=== PATIENT | female | born 1940 | race Caucasian/White ===

== ENCOUNTER → 2016-12-08 | Outpatient (CLI) | payer OTHER | LOC: BHFA 10:15 | PROVIDERS: ATTEND Internal Medicine Cardiovascular Disease | DX: I70.1 Atherosclerosis of renal artery (principal); I10 Essential (primary) hypertension; R07.9 Chest pain, unspecified; E78.5 Hyperlipidemia, unspecified ==

== ENCOUNTER → 2016-12-14 | Outpatient (CLI) | payer OTHER | LOC: BHFA 13:30 | PROVIDERS: ATTEND Internal Medicine Interventional Cardiology | DX: R07.9 Chest pain, unspecified (principal) | CPT/HCPCS: 78452; 93017; A9500 ==

== ENCOUNTER → 2017-07-24 | Outpatient (CLI) | payer OTHER | LOC: FIMAGING 13:12 | PROVIDERS: ATTEND Internal Medicine | DX: Z12.31 Encounter for screening mammogram for malignant neoplasm of breast (principal) | CPT/HCPCS: G0202 ==

== ENCOUNTER 2017-09-05 23:50 | Observation (INO) | payer OTHER ==
[2017-09-05] MEDS ORDERED: ASPIRIN 81 MG CHEWABLE TAB PO ONE (23:59)
--- NOTE | 2017-09-06 00:07 | CPEKG ---
Heart Rate: 80 RR Interval: 750 P-R Interval: 172 QRSD Interval: 86 QT Interval: 412 QTC Interval: 476 P [place]: 47 QRS [place]: 34 T Wave [place]: 24 EKG Severity - NORMAL ECG - EKG Impression: SINUS RHYTHM Electronically Signed By: Joellen Watts 06-Sep-2017 01:36:31
[2017-09-06 00:14] LABS: % IMMATURE GRANULYOCYTES 0.2 % (0.0-1.1); ABSOLUTE IMMATURE GRANULOCYTES 0.01 10^3/uL (0.00-0.10); ADD DIFF? NO; ADD MORPH? NO; ADD SCAN? NO; ATYPICAL LYMPHOCYTE FLAG 0 (0-99); FRAGMENT RBC FLAG 0 (0-99); HEMATOCRIT 35.3 % (38.0-47.0); LEFT SHIFT FLG 0 (0-99); LIPEMIA HEMOLYSIS FLAG 90 (0-99); MEAN CELL HEMOGLOBIN 30.8 pg (27.9-34.1); MEAN CELL VOLUME 90.5 fL (81.5-99.8); MEAN PLATELET VOLUME 8.6 fL (8.7-11.7); PLATELET CLUMPS FLAG 0 (0-99); PLATELET COUNT 173 10^3/uL (150-400); RED CELL DISTRIBUTION WIDTH 12.7 % (11.5-15.2)
[2017-09-06 00:26] LABS: APTT 26.7 SEC (23.0-38.0)
[2017-09-06 00:29] LABS: ALANINE AMINOTRANSFERASE 27 IU/L (9-52); ALKALINE PHOSPHATASE 82 IU/L (38-126); ANION GAP 10 mEq/L (8-16); ASPARTATE AMINOTRANSFERASE 34 IU/L (14-46); BILIRUBIN,TOTAL 0.8 mg/dL (0.1-1.4); BILIRUBIN-CONJUGATED 0.5 mg/dL (0.0-0.5); BILIRUBIN-UNCONJUGATED 0.3 mg/dL (0.0-1.1); CALCIUM 9.4 mg/dL (8.5-10.4); CARBON DIOXIDE 24 mEq/l (22-31); CHLORIDE 104 mEq/L (97-110); CREATININE 0.9 mg/dL (0.6-1.0); GLOMERULAR FILTRATION RATE > 60; GLUCOSE 100 mg/dL (70-100); MAGNESIUM 1.8 mg/dL (1.6-2.3); POTASSIUM 4.6 mEq/L (3.5-5.2); SODIUM 138 mEq/L (134-144); TOTAL PROTEIN 7.1 g/dL (6.3-8.2)
[2017-09-06] MEDS ORDERED: NITROGLYCERIN 0.4 MG BTL SL ONE (00:31)
[2017-09-06] MEDS: NITROGLYCERIN 0.4 MG BTL SL PRN ×2 (00:33→00:40)
--- NOTE | 2017-09-06 00:39 | EDPHY ---
H & P Stated Complaint: woke up with feeling she neede to burp, tight mid chest, sob Time Seen by Provider: 09/05/17 23:58 HPI/ROS: CC: Chest heaviness since 10:30pm HPI: This 77-year-old female with past medical history including peripheral vascular disease with hyperlipidemia, HTN: peptic ulcer disease, renal artery stenosis, hiatal hernia, and hypothyroidism presents to the emergency department tonight with complaints of chest heaviness that started at 10:30 p.m. this evening and has been constant. She states she was tired early this evening and went to bed at about 8:30 p.m. to read. At that time she states she wondered if she was a little short of breath. She states she fell asleep immediately and when she woke up at 10:30 p.m. she felt a heaviness in the middle of her chest. There was no radiation to her neck, jaw, arms, or back. She states it felt like she had to belch. She took a couple of antacid tablets without relief and also tried [place] water without relief. She had already taken her usual dose of 162 mg of aspirin prior to falling asleep. She denied nausea or diaphoresis. And again she states she felt a little short of breath but described it as the heaviness causing her to feel short of breath. Her chest discomfort was 6 or 7/10 at the on set and 4/10 currently. She denies having prior episodes of this sort. She had chicken rice soup for dinner at 6: 00 p.m.. She denies any upper abdominal discomfort. She states she is very active but only walked 1 mild this afternoon but at a slow pace with her . She states she normally takes about 10,000 steps a day. She exercises 3-4 times per week. However, she states she has become fatigued and short of breath with exertion more quickly than normal. She drinks 2 and half glasses of wine daily. She is a former smoker but never smoked heavily and quit in her late 30s. She has a remote history of being exposed to secondhand smoke. She was diagnosed with a hiatal hernia by endoscopy at the end of last year. She has a mgmt consultant, Dr. Art, at [facility] but has not seen him in a couple of years. A nuclear stress test in 2009 was negative by the patient's report. There is no family history of premature coronary artery disease but she states there is a lot of heart disease in her family. Her father had coronary artery bypass in his 70s. No recent illness. REVIEW OF SYSTEMS: Constitutional: No fever, no chills. Eyes: No discharge. ENT: No sore throat. Respiratory: No cough, no shortness of breath. Cardiac: See HPI. No edema. Gastrointestinal: No abdominal pain, no vomiting. Genitourinary: No dysuria. Musculoskeletal: No back or leg pain. Skin: No rashes. Neurological: No headache. Source: Patient, Family () Exam Limitations: No limitations - Personal History Current Tetanus Diphtheria and Acellular Pertussis (TDAP): Yes Tetanus Vaccine Date: <10 years - Medical/Surgical History PMH: PMH: Includes peripheral vascular disease with hyperlipidemia, peptic ulcer disease, renal artery stenosis, osteoarthritis, hiatal hernia, obstructive sleep apnea, hypothyroidism, anemia thought to be due to peptic ulcer disease, carpal tunnel syndrome, B12 and vitamin-D deficiencies PSH: Includes appendectomy, tonsillectomy, patella surgery, right rotator cuff FH: Includes her father having bypass in his 7 days, mother had Parkinson's disease. No known premature coronary artery disease Allergies: Compazine, shellfish. The patient states she had a CT scan with contrast which caused her heart rate to go up into the 200s. Medications: Lisinopril, Synthroid, Prilosec, Aspirin Social: The patient is . She is very active and exercises 3-4 times per week. She quit smoking in her late 30s but states she was never a heavy smoker. She states she was exposed to secondhand smoke at a younger age. She drinks approximately 2 and half glasses of wine per day. Her Primary Care Provider is Dr. Elizabeth Bauer of [facility] , her Ice Puller is Dr. Art with [facility]. Hx Asthma: No Hx Chronic Respiratory Disease: No Hx Diabetes: No Hx Cardiac Disease: No Hx Renal Disease: No Hx Cirrhosis: No Hx Alcoholism: No Hx HIV/AIDS: No Hx Splenectomy or Spleen Trauma: No Other PMH: htn, hypothyroid, r renal stenosis - Social History Smoking Status: Former smoker - Physical Exam Exam: General Appearance: Alert, no distress. Eyes: Pupils equal and round no pallor or injection. ENT, Mouth: Mucous membranes are dry. Respiratory: There are no retractions, lungs are clear to auscultation. Cardiovascular: Regular rate and rhythm. No murmurs. Gastrointestinal: Abdomen is soft and nontender, no masses, bowel sounds normal. Neurological: Awake and alert, sensory and motor exams grossly normal. Skin: Warm and dry, no rashes. Musculoskeletal: Neck is supple nontender. Extremities are symmetrical, full range of motion. No calf swelling, warmth, cords or erythema. Psychiatric: Patient is oriented X 3, there is no agitation. DIFFERENTIAL DIAGNOSIS: After history and physical exam differential diagnosis was considered for but not limited to: cardiac ischemia, esophageal spasm, GI etiology, unlikely pulmonary embolism. Constitutional: Initial Vital Signs Temperature (C) 97.7 F 09/05/17 23:57 Heart Rate 81 09/05/17 23:57 Respiratory Rate 18 09/05/17 23:57 Blood Pressure 176/106 H 09/05/17 23:57 O2 Sat (%) 96 09/05/17 23:57 O2 Delivery Mode Room Air Allergies/Adverse Reactions: prochlorperazine edisylate [From Compazine] Allergy (Severe, Verified 03/09/10 20:25) DYSTONIA prochlorperazine maleate [From Compazine] Allergy (Severe, Verified 03/09/10 20: 25) DYSTONIA Shellfish *RETIRED-07/02/12 [Shellfish] Allergy (Severe, Verified 03/09/10 21:12 ) Swelling/neck,face,throat Home Medications: Medication Instructions Recorded LEVOTHYROXINE SODIUM [Levoxyl] 88 mcg PO 10/01/09 Lisinopril [Zestril 20 mg (*)] 20 mg PO 10/01/09 FISH OIL CONC 1,000 MG SOFTGEL 03/09/10 PRILOSEC 03/09/10 Medical Decision Making - Diagnostics EKG Interpretation: EKG #1: Normal sinus rhythm, heart rate 80, borderline prolonged QT interval, nonspecific ST changes anterior leads, baseline artifact in lead V4. EKG#2: Normal sinus rhythm, heart rate 70, borderline T abnormalities in the anterior leads. No acute ischemic changes. Imaging Results: One-view chest x-ray showed no acute findings. Heart size normal, no infiltrate , effusions, or pneumothorax. Imaging: I viewed and interpreted images myself ED Course/Re-evaluation: The patient was seen and examined. Vital signs were reviewed. She was slightly hypertensive upon arrival. Her O2 saturations were 95-96% on room air. She had already taken her regular dose of aspirin at 8:30 p.m. this evening which was 162 mg. She was given another 162 mg of aspirin upon arrival. EKG #1 and #2 showed no acute ischemic changes. Chest x-ray showed no acute findings per my read. The patient's chest discomfort went from a 4/10 to 0/10 after the 2nd nitroglycerin tablet. Vital signs remained stable and her blood pressure improved. She developed a slight headache but declined Tylenol. Her CBC was remarkable only for a very mild anemia with a hemoglobin of 12 and hematocrit of 35. The comprehensive metabolic panel was unremarkable with normal electrolytes, normal liver function tests, normal lipase. Her troponin was negative. The patient's HEART score is 5 which indicates moderate risk for major adverse cardiac event. She has not seen her mgmt consultant in 2 years. She will be transferred to [facility] for further evaluation and treatment. The case was discussed with Hospitalist, Dr. Moni Mccarthy. - Data Points Laboratory Results: Laboratory Results 09/06/17 00:05 09/06/17 00:05 09/06/17 09/06/17 09/06/17 00:05 00:05 00:05 WBC 4.47 10^3/uL 10^3/uL (3.80-9.50) RBC 3.90 10^6/uL L 10^6/uL (4.18-5.33) Hgb 12.0 g/dL L g/dL (12.6-16.3) Hct 35.3 % L % (38.0-47.0) MCV 90.5 fL fL (81.5-99.8) MCH 30.8 pg pg (27.9-34.1) MCHC 34.0 g/dL g/dL (32.4-36.7) RDW 12.7 % % (11.5-15.2) Plt Count 173 10^3/uL 10^3/uL (150-400) MPV 8.6 fL L fL (8.7-11.7) Neut % (Auto) 41.8 % % (39.3-74.2) Lymph % (Auto) 42.7 % % (15.0-45.0) [place] % (Auto) 10.1 % % (4.5-13.0) Eos % (Auto) 4.3 % % (0.6-7.6) Baso % (Auto) 0.9 % % (0.3-1.7) Nucleat RBC Rel Count 0.0 % % (0.0-0.2) Absolute Neuts (auto) 1.87 10^3/uL 10^3/uL (1.70-6.50) Absolute Lymphs (auto) 1.91 10^3/uL 10^3/uL (1.00-3.00) Absolute Monos (auto) 0.45 10^3/uL 10^3/uL (0.30-0.80) Absolute Eos (auto) 0.19 10^3/uL 10^3/uL (0.03-0.40) Absolute Basos (auto) 0.04 10^3/uL 10^3/uL (0.02-0.10) Absolute Nucleated RBC 0.00 10^3/uL 10^3/uL (0-0.01) Immature Gran % 0.2 % % (0.0-1.1) Immature Gran # 0.01 10^3/uL 10^3/uL (0.00-0.10) PT 12.4 SEC SEC (12.0-15.0) INR 0.95 (0.83-1.16) APTT 26.7 SEC SEC (23.0-38.0) Sodium 138 mEq/L mEq/L (134-144) Potassium 4.6 mEq/L mEq/L (3.5-5.2) Chloride 104 mEq/L mEq/L (97-110) Carbon Dioxide 24 mEq/l mEq/l (22-31) Anion Gap 10 mEq/L mEq/L (8-16) BUN 15 mg/dL mg/dL (7-23) Creatinine 0.9 mg/dL mg/dL (0.6-1.0) Estimated GFR > 60 Glucose 100 mg/dL mg/dL (70-100) Calcium 9.4 mg/dL mg/dL (8.5-10.4) Magnesium 1.8 mg/dL mg/dL (1.6-2.3) Total Bilirubin 0.8 mg/dL mg/dL (0.1-1.4) Conjugated Bilirubin 0.5 mg/dL mg/dL (0.0-0.5) Unconjugated Bilirubin 0.3 mg/dL mg/dL (0.0-1.1) AST 34 IU/L IU/L (14-46) ALT 27 IU/L IU/L (9-52) Alkaline Phosphatase 82 IU/L IU/L (38-126) Troponin I < 0.012 ng/mL ng/mL (0.000-0.034) Total Protein 7.1 g/dL g/dL (6.3-8.2) Albumin 4.0 g/dL g/dL (3.5-5.0) Lipase 219 IU/L IU/L (23-300) TSH 1.820 uIU/mL uIU/mL (0.465-4.680) Medications Given: Nitroglycerin (Nitrostat) 0.4 mg SL Q5M PRN PRN Reason: Chest Pain Last Admin: 09/06/17 00:40 Dose: 0.4 mg Discontinued Medications Aspirin (Aspirin) 162 mg PO EDNOW ONE Stop: 09/06/17 00:00 Last Admin: 09/06/17 00:10 Dose: 162 mg Departure - Departure Disposition: [facility] Inpatient Acute Clinical Impression: Chest heaviness Condition: Good
[2017-09-06 00:40] LABS: INR 0.95 (0.83-1.16); PROTIME(PATIENT) 12.4 SEC (12.0-15.0); TROPONIN I < 0.012 ng/mL (0.000-0.034)
[2017-09-06] MEDS ORDERED: LIDOCAINE 2% VISCOUS 15 ML UDCUP PO ONE (01:41)
[2017-09-06] MEDS ORDERED: MAG HYDROX/AL HYDROX/SIMETH 30 ML UDCUP PO ONE (01:42)
[2017-09-06] MEDS ORDERED: LORazepam 2 MG/ML INJ IVP PRN (01:53)
[2017-09-06] MEDS ORDERED: ONDANSETRON 4 MG/2 ML VIAL IVP PRN (01:53)
[2017-09-06] MEDS ORDERED: ACETAMINOPHEN 325 MG TAB PO PRN (01:53)
[2017-09-06] MEDS ORDERED: NITROGLYCERIN 0.4 MG BTL SL PRN (01:57)
[2017-09-06] MEDS ORDERED: LEVOTHYROXINE 88 MCG TAB PO SCH ×2 (06:00→09:15)
[2017-09-06 06:21] LABS: ANION GAP 10 mEq/L (8-16); CALCIUM 9.4 mg/dL (8.5-10.4); CARBON DIOXIDE 24 mEq/l (22-31); CHLORIDE 107 mEq/L (97-110); CREATININE 0.8 mg/dL (0.6-1.0); GLOMERULAR FILTRATION RATE > 60; GLUCOSE 91 mg/dL (70-100); POTASSIUM 4.2 mEq/L (3.5-5.2); SODIUM 141 mEq/L (134-144)
[2017-09-06 06:33] LABS: TROPONIN I < 0.012 ng/mL (0.000-0.034)
--- NOTE | 2017-09-06 07:03 | PDGENHP ---
History and Physical - Chief Complaint Chest Heaviness - History of Present Illness Source - patient provides history and appears reliable. HPI - Pleasant 77 yo F with pmhx significant for renal artery stenosis, HLD, HTN , GERD/PUD, ANTONIO on CPAP, hypothyroidism who presented to [facility] last evening after she developed progressively worsening central chest heaviness. Patient reports she was feeling unwell and significantly fatigued this evening such that she went to bed approximately 830pm which she does not normally do. She awoke at 1030p with persistent and worsening chest heaviness. denies any radiating symptoms to neck/arms. patient felt SOA 2/2 heaviness. no cough/fevers/chills. Patient also felt like she was having indigestion so she took some OTC h2 blockers without improvement in sx. She continued to feel need to belch and attempted to take some carbonated water without relief of symptoms. Patient also took her BP during this time and noted BPs to be significantly elevated 195 /95 with HR 100s. as her chest heaviness was more pronounced patient opted to go to the ED for evaluation. She was given nitroglycerin x 2 and additional 162mg ASA as she took dose earlier in the day with resolution of her chest heaviness but persistent to more mild degree feeling of indigestion. Patient is normally fairly active person and has never had anginal symptoms previously. History Information - Allergies/Home Medication List Allergies/Adverse Reactions: prochlorperazine edisylate [From Compazine] Allergy (Severe, Verified 03/09/10 20:25) DYSTONIA prochlorperazine maleate [From Compazine] Allergy (Severe, Verified 03/09/10 20: 25) DYSTONIA Shellfish *RETIRED-07/02/12 [Shellfish] Allergy (Severe, Verified 03/09/10 21:12 ) Swelling/neck,face,throat Home Medications: LEVOTHYROXINE SODIUM [Levoxyl] 88 mcg PO 10/01/09 [Last Taken 10/01/09] Lisinopril [Zestril 20 mg (*)] 20 mg PO 10/01/09 [Last Taken 10/01/09] FISH OIL CONC 1,000 MG SOFTGEL 03/09/10 [Last Taken Unknown] PRILOSEC 03/09/10 [Last Taken Unknown] I have personally reviewed and updated: family history, medical history, social history, surgical history - Past Medical History Additional medical history: hypothyroidism. ANTONIO on CPAP. HTN. HLD. Renal artery stenosis. GERD/PUD/hiatal hernia. OA. anemia. normal NM stress 2009. carpal tunnel now resolved. B12/Vit D deficiency - Surgical History Additional surgical history: Tonsillectomy/adenoidectomy. Appendectomy. Right Rotator cuff repair. Patellar repair - Family History Additional family history: father - CAD 70s, paternal uncles/cousins with CAD at old age. no hx sudden . mother - Parkinson's. brother/sister are healthy. 3 adult children - healthy - Social History Smoking Status: Former smoker Alcohol Use: Heavy (2.5 or more glasses wine daily.) Drug Use: Marijuana (edible prn for insomnia) Review of Systems Review of Systems: ROS: 10pt was reviewed & negative except for what was stated in HPI & below Constitutional: Reports: no symptoms, other (fatigue). Denies: chills, fever EENMT: Reports: no symptoms. Denies: blurred vision, eye pain, nose congestion , sore throat Cardiac: Reports: other (see HPI). Denies: edema, palpitations Respiratory: Reports: shortness of breath (with chest heaviness now resolved) Gastrointestinal: Reports: nausea, other (GI upset. ). Denies: vomitting, blood streaked stools, rectal bleeding, abdominal pain Genitourinary: Denies: dysuria, hematuria Muscolosketal: Denies: back pain, joint pain, muscle pain Skin: Reports: no symptoms. Denies: rash Neurological: Reports: no symptoms. Denies: anxiety, headache, numbness, tremors, weakness Hematologic/Lymphatic: Reports: no symptoms Physical Exam Physical Exam: Selected Entries 09/05/17 09/06/17 23:57 03:00 Blood Pressure Automatic Method Heart Rate 81 65 Respiratory 18 16 Rate O2 Sat (%) 96 92 Temperature (C) 36.5 C 36.6 C Blood Pressure 176/106 H 134/79 H Mean Arterial 129 H 97 Pressure (MAP) O2 Delivery Room Air Room Air Mode Blood Pressure Left Source Upper Arm Heart Rate/ Monitor Temperature Oral Oral Source Heart Rate Heart Rate/ Source Monitor Temp Pulse Resp BP Pulse Ox 36.6 C 65 16 134/79 H 92 09/06/17 03:00 09/06/17 03:00 09/06/17 03:00 09/06/17 03:00 09/06/17 03:00 Constitutional: no apparent distress, not in pain, other (NAD. very pleasant adult female sitting in bed comfortably. in good spirits. appears younger than stated age. ) Eyes: PERRL, anicteric sclera, EOMI, No scleral injection Ears, Nose, Mouth, Throat: moist mucous membranes, No poor dentition Cardiovascular: regular rate and rhythym, no murmur, rub, or gallop, No edema Peripheral Pulses: 2+: dorsalis-pedis (R), dorsalis-pedis (L) Respiratory: no respiratory distress, no rales or rhonchi, clear to auscultation Gastrointestinal: normoactive bowel sounds, soft, non-tender abdomen, no palpable masses, No distension Genitourinary: No no bladder tenderness, No jiménez in urethra Skin: warm, no rashes or abrasions, No rash Musculoskeletal: full muscle strength, other (strength grossly normal. patient sits up independently. ), No generalized weakness Neurologic: AAOx3, sensation intact bilaterally, CN II-XII Intact, No facial droop Psychiatric: not anxious, thought process linear, No poor insight, No poor judgement, No poor memory Lab Data & Imaging Review 09/06/17 00:05 09/06/17 05:55 WBC 4.47 10^3/uL (3.80-9.50) 09/06/17 00:05 RBC 3.90 10^6/uL (4.18-5.33) L 09/06/17 00:05 Hgb 12.0 g/dL (12.6-16.3) L 09/06/17 00:05 Hct 35.3 % (38.0-47.0) L 09/06/17 00:05 MCV 90.5 fL (81.5-99.8) 09/06/17 00:05 MCH 30.8 pg (27.9-34.1) 09/06/17 00:05 MCHC 34.0 g/dL (32.4-36.7) 09/06/17 00:05 RDW 12.7 % (11.5-15.2) 09/06/17 00:05 Plt Count 173 10^3/uL (150-400) 09/06/17 00:05 MPV 8.6 fL (8.7-11.7) L 09/06/17 00:05 Neut % (Auto) 41.8 % (39.3-74.2) 09/06/17 00:05 Lymph % (Auto) 42.7 % (15.0-45.0) 09/06/17 00:05 [place] % (Auto) 10.1 % (4.5-13.0) 09/06/17 00:05 Eos % (Auto) 4.3 % (0.6-7.6) 09/06/17 00:05 Baso % (Auto) 0.9 % (0.3-1.7) 09/06/17 00:05 Nucleat RBC Rel Count 0.0 % (0.0-0.2) 09/06/17 00:05 Absolute Neuts (auto) 1.87 10^3/uL (1.70-6.50) 09/06/17 00:05 Absolute Lymphs (auto) 1.91 10^3/uL (1.00-3.00) 09/06/17 00:05 Absolute Monos (auto) 0.45 10^3/uL (0.30-0.80) 09/06/17 00:05 Absolute Eos (auto) 0.19 10^3/uL (0.03-0.40) 09/06/17 00:05 Absolute Basos (auto) 0.04 10^3/uL (0.02-0.10) 09/06/17 00:05 Absolute Nucleated RBC 0.00 10^3/uL (0-0.01) 09/06/17 00:05 Immature Gran % 0.2 % (0.0-1.1) 09/06/17 00:05 Immature Gran # 0.01 10^3/uL (0.00-0.10) 09/06/17 00:05 PT 12.4 SEC (12.0-15.0) 09/06/17 00:05 INR 0.95 (0.83-1.16) 09/06/17 00:05 APTT 26.7 SEC (23.0-38.0) 09/06/17 00:05 Sodium 141 mEq/L (134-144) 09/06/17 05:55 Potassium 4.2 mEq/L (3.5-5.2) 09/06/17 05:55 Chloride 107 mEq/L (97-110) 09/06/17 05:55 Carbon Dioxide 24 mEq/l (22-31) 09/06/17 05:55 Anion Gap 10 mEq/L (8-16) 09/06/17 05:55 BUN 13 mg/dL (7-23) 09/06/17 05:55 Creatinine 0.8 mg/dL (0.6-1.0) 09/06/17 05:55 Estimated GFR > 60 09/06/17 05:55 Glucose 91 mg/dL (70-100) 09/06/17 05:55 Calcium 9.4 mg/dL (8.5-10.4) 09/06/17 05:55 Magnesium 1.8 mg/dL (1.6-2.3) 09/06/17 00:05 Total Bilirubin 0.8 mg/dL (0.1-1.4) 09/06/17 00:05 Conjugated Bilirubin 0.5 mg/dL (0.0-0.5) 09/06/17 00:05 Unconjugated Bilirubin 0.3 mg/dL (0.0-1.1) 09/06/17 00:05 AST 34 IU/L (14-46) 09/06/17 00:05 ALT 27 IU/L (9-52) 09/06/17 00:05 Alkaline Phosphatase 82 IU/L (38-126) 09/06/17 00:05 Troponin I < 0.012 ng/mL (0.000-0.034) 09/06/17 05:55 Total Protein 7.1 g/dL (6.3-8.2) 09/06/17 00:05 Albumin 4.0 g/dL (3.5-5.0) 09/06/17 00:05 Lipase 219 IU/L (23-300) 09/06/17 00:05 TSH 1.820 uIU/mL (0.465-4.680) 09/06/17 00:05 Imaging Review: CXR - reviewed myself. report pending. nothing acute. compared to available. no changes. Visualized and Interpreted Chest x-ray results: No EKG Interpretation: Positive for: normal sinsus rhythm EKG additional interpertation: NSR 80s. no acute ST changes. T wave flattening III. QTc 476 Assessment & Plan Assessment: 77 yo F with HTN, HLD, SHAYE who presents with c/o chest pressure. 1. Chest heaviness (Acute) - initial evaluation negative with trop/ekg nondiagnostic. plan for stress testing in AM if AM troponin negative. 2. GI upset/GERD/hiatal hernia - continue ppi. encouraged patient to take daily. keep food journal. avoid trigger foods reviewed (alcohol, acidic foods, tomatoes, chocolate, caffeine/coffee, etc.) 3. renal artery stenosis - BP controlled. 4. benign essential HTN - BPs significantly improved since arrival to [facility]. BPs acceptable at this time. continue lisinopril. 5. hypothyroidism - continue l-thyroxine replacement. TSH WNL. 6. ANTONIO on CPAP - resume at discharge. 7. HLD - resume statin at discharge. 8. anemia - no evidence of active bleeding. pt with history of anemia likely chronic disease. FEN - IVF. monitor/replace electrolytes prn. NPO until after stress testing. COR - DNI. pt amenable to cardiac resuscitation. Dispo - patient admitted to observation on PCU.
[2017-09-06] MEDS ORDERED: PANTOPRAZOLE SODIUM 40 MG TAB PO SCH ×2 (08:00→14:30)
[2017-09-06 08:09] VITALS: TEMP 98.1
[2017-09-06] MEDS ORDERED: PRESERVISION AREDS2 FORMULA EYE VIT 1 EACH PO SCH (09:15)
[2017-09-06] MEDS ORDERED: CHOLECALCIFEROL VIT D3 2,000 UNITS TAB/CAP PO SCH (09:15)
[2017-09-06] MEDS ORDERED: LISINOPRIL 10 MG TAB PO SCH (09:15)
[2017-09-06] MEDS ORDERED: Herbals/Supplements -Info Only PO SCH (09:30)
[2017-09-06 12:31] VITALS: BP 135/88; PULSE 69; RESP 12; O2SAT 94
--- NOTE | 2017-09-06 14:04 | PDCARST ---
CAR Stress Test Results Type of Stress Test: Nuclear TM stress test Indication: cp Description of Procedure: After informed consent was obtained, pt was exercised according to Matt Protocol. Monitoring was performed with standard stress lamp tester and inspector electrode placement. Vital signs were monitored according to protocol throughout the procedure. STRESS EKG AND HEMODYNAMIC DATA. Exercise time: 6 min. This is equivalent to: 7.1 METS. Resting heart rate: 84 bpm. Resting blood pressure: 118/76 mmHg. Resting O2 saturation: 93 %. Peak heart rate: 136 bpm. This is 95 % of age predicted maximum heart rate response. Peak blood pressure: 156/76 mmHg. Exercise O2: 96 %. Arrhythmias : None. Reason for termination: The test was stopped due to achieving maximal heart rate. Symptoms: The patient experienced no typical symptoms of angina during stress or recovery. STRESS TEST ANALYSIS. Baseline ECG: SR with mild b/ l ST-T abn. Stress ECG: upsloping 2mm ST depression. Rhythm: no arrhythmias noted during exercise and recovery. Blood pressure: normal blood pressure response to exercise. Exercise tolerance: The patient has normal exercise tolerance adjusted for age and gender. Symptoms: No exercise induced symptoms. Impression: This is an equivocal study due to baseline ECG abnormalities that worsened with exertion. Conclusion: Await nuclear images.
--- NOTE | 2017-09-06 14:13 | CPEKG ---
Heart Rate: 78 RR Interval: 769 P-R Interval: 168 QRSD Interval: 86 QT Interval: 400 QTC Interval: 456 P [place]: 40 QRS [place]: 29 T Wave [place]: 19 EKG Severity - BORDERLINE ECG - EKG Impression: SINUS RHYTHM EKG Impression: BORDERLINE T ABNORMALITIES, ANTERIOR LEADS Electronically Signed By: Michoacano Zaldivar 08-Sep-2017 14:23:47
--- NOTE | 2017-09-06 16:54 | ASDISCHSUM ---
Discharge Information Plan Status:Home with No Needs Medically Cleared to Leave:09/05/2017 Discharge Date:09/06/2017 04:27 PM CM D/C Disposition:Home, Routine, Self-Care ADT D/C Disposition:Home, Routine, Self-Care Projected Discharge Date:09/06/2017 12:00 AM Transportation at D/C:Family Discharge Delay Reason: Follow-Up Date:09/06/2017 12:00 AM Discharge Slot: Final Diagnosis: Placement Information Patient Contact Information Contact Name:ROSALIE Relationship: Address:[address] City:[place] Alternate Phone: [facility]/Zip Code:[place] [address] Email: Financial Information Financial Class: Primary Plan Desc:MEDICARE OUTPATIENT Primary Plan Number:[id number] Secondary Plan Desc:[employer]ITY Secondary Plan Number:[id number] Assessment Information Intervention Information Intervention Type:*ACOSTA-Signed Date of Service:09/06/2017 09:37 AM Patient Type:Observation Staff Member:Ewelina Figueroa Hours: Discipline: Severity: Comment:
--- NOTE | 2017-09-06 17:26 | PDDCSUM ---
Discharge Summary Discharge Summary: DISCHARGE SUMMARY FOLLOW-UP ITEMS: 1. Follow-up B12 level 2. Follow up with [facility] DATE OF ADMISSION: 09.05.2017 DATE OF DISCHARGE: 09/06/2017 DISCHARGE DIAGNOSES: 1. Acute chest pain 2. Suspected GERD 3. Hypertension CONSULTATIONS: None PROCEDURES / IMAGING: Nuclear medicine stress test demonstrating no inducible ischemia or prior infarct CHIEF COMPLAINT: Acute chest pain SUBJECTIVE: Patient is feeling well at time of discharge PHYSICAL EXAM ON DISCHARGE: Systolic blood pressure is 110-150, heart rate 67, afebrile overnight, satting well on room air, alert awake oriented x3, no apparent distress, lungs are clear to auscultation bilaterally with no crackles or wheezes LABS ON DISCHARGE: D-dimer normal, white blood cell count normal, hemoglobin 12, troponin negative x2, creatinine 0.8, liver panel unremarkable HOSPITAL COURSE BY PROBLEM: The patient presented with acute chest pain was ruled out for acute coronary syndrome with negative troponin x2, no ischemic changes on EKG, ruled out for pulmonary embolism with negative D-dimer, ruled out for obstructive coronary disease with a negative nuclear medicine stress test. Most likely cause of her symptoms is gastroesophageal reflux disease, and the patient has been treated for this chronically. Given that the patient is already taking omeprazole 20 mg daily, recommended that she temporarily increase her dosage to 20 mg twice daily, and utilize as needed ranitidine for backup therapy, as well as Tums for symptomatic relief. The patient did appreciate reduction in her symptoms with sublingual nitroglycerin, and this may be secondary to esophageal spasm which can be provoked in the setting of acid reflux. It was noted on presentation that the patient had elevated systolic blood pressures in the 180-190 range, and these were most likely secondary to acute pain and distress. The patient's systolic blood pressures improved without any intervention. The patient was continued on her regular home dosage of lisinopril. I recommend the patient follow up with both her primary care provider as well as GI of the [facility], to continue the conversation as to whether she should undergo a repeat upper endoscopy, given her known history of GERD and the possibility of acute worsening. DISCHARGE MEDICATIONS: Please see official discharge medication reconciliation sheet in chart , omeprazole 20 mg twice daily for 2 weeks, ranitidine 150 twice daily as needed, Tums as needed, continue other home medications. DISCHARGE INSTRUCTIONS: Please follow up with primary care provider as well as GI of the [facility].
[2017-09-06] MEDS ORDERED: ASPIRIN 81 MG CHEWABLE TAB PO SCH (21:00)
== END 2017-09-06 16:27 | disposition home or self-care (01) ==
LOC: CED 23:50 → CEDHOLD 09-06 01:06 → F2W 09-06 02:48
PROVIDERS: ADMIT Family Medicine; ATTEND Internal Medicine
DX: R07.9 Chest pain, unspecified (principal); I10 Essential (primary) hypertension
CPT/HCPCS: 71010; 78452; 93005; 93017; 99285; A9500; G0378; 80048-PO; 80076-PO; 82607-90; 83690-PO; 83735-PO; 84443-PO; 84484-PO; 85025-PO; 85610-PO; 85730-PO

== ENCOUNTER → 2018-02-14 | Outpatient (CLI) | payer OTHER | LOC: FIMAGING 07:12 | PROVIDERS: ATTEND Internal Medicine Cardiovascular Disease | DX: I70.1 Atherosclerosis of renal artery (principal); E78.5 Hyperlipidemia, unspecified; I10 Essential (primary) hypertension | CPT/HCPCS: 76770-PO ==

== ENCOUNTER → 2018-03-02 | Outpatient (CLI) | payer OTHER | LOC: FIMAGING 10:38 | PROVIDERS: ATTEND Internal Medicine | DX: M81.0 Age-related osteoporosis without current pathological fracture (principal); D51.0 Vitamin B12 deficiency anemia due to intrinsic factor deficiency; E03.9 Hypothyroidism, unspecified; E78.5 Hyperlipidemia, unspecified; I10 Essential (primary) hypertension; Z51.81 Encounter for therapeutic drug level monitoring ==

== ENCOUNTER → 2018-12-03 | Outpatient (CLI) | payer OTHER | LOC: FIMAGING 12:37 | PROVIDERS: ATTEND Internal Medicine | DX: Z12.31 Encounter for screening mammogram for malignant neoplasm of breast (principal) ==